=== PATIENT | female | born 1990 | race Caucasian/White ===

== ENCOUNTER 2020-10-04 21:57 | Emergency (ER) | payer MEDICAID ==
[~2020-10-04] VITALS: Ht 165.1 cm; Wt 57.2 kg
[2020-10-04] MEDS ORDERED: LIDOCAINE HCL/MPF 1% 30 ML VIAL IJ ONE (22:40)
--- NOTE | 2020-10-04 22:42 | NUR ---
BIBS FROM HOME TO ER BED 17.AAOX4. NOT IN RESP DISTRESS. AMBULATORY. C/O L SIDED VAGINAL PAIN. REPORTS SMALL LUMP W/ DISCOLORATION. PAIN RATE 01/16. DENIES TRAUMA, DISCHARGE NOR BLEEDING. PROVIDER AT BEDSIDE FOR EVAL.
[2020-10-04] MEDS ORDERED: KETO10TA2 PO (23:11)
[2020-10-04] MEDS ORDERED: AZITHROMYCIN 250 MG TABLET ONE (23:14)
[2020-10-04] MEDS ORDERED: KETOROLAC TROMETHAMINE INJ 60 MG/2 ML VIAL IM ONE ×2 (23:14→23:30)
[2020-10-04] MEDS ORDERED: AZITHROMYCIN 250 MG TABLET PO ONE (23:30)
[2020-10-04 23:40] VITALS: BP 125/69
--- NOTE | 2020-10-04 23:40 | NUR ---
Patient discharged to home in stable condition. Written and verbal after care instructions given. Patient verbalizes understanding of instruction.
== END 2020-10-04 23:41 | disposition home or self-care (01) ==
LOC: ER 22:01
DX: N76.5 Ulceration of vagina (principal)
CPT/HCPCS: 87491; 87591; 96372; 99283; A6407; J1885; J3490